=== PATIENT | female | born 1970 | race African-American/Black ===

== ENCOUNTER 2017-09-06 02:23 | Emergency (ER) | payer SELFPAY ==
[~2017-09-06] VITALS: Ht 157.5 cm; Wt 67.0 kg
[2017-09-06] MEDS ORDERED: KETOROLAC 60MG/2ML VIAL IM ONE (02:45)
[2017-09-06 02:54] VITALS: BP 129/66
== END 2017-09-06 05:16 | disposition home or self-care (01) ==
LOC: ER 02:38
DX: S70.01XA Contusion of right hip, initial encounter (principal); W22.8XXA Striking against or struck by other objects, initial encounter; Y92.092 Bedroom in other non-institutional residence as the place of occurrence of the external cause; Y93.89 Activity, other specified; R03.0 Elevated blood-pressure reading, without diagnosis of hypertension; Z98.890 Other specified postprocedural states
CPT/HCPCS: 72170; 96372; 99283; J1885; Z7610